=== PATIENT | female | born 1965 | race Caucasian/White ===

== ENCOUNTER 2016-07-23 18:46 | Emergency (ER) | payer BC ==
--- NOTE | 2016-07-23 19:23 | EDM.PDOC ---
[id number] 4d appendix Time Seen by Provider: 07/23/16 19:15 Source: Reports: Patient, Family, Provider History Limitations: Reports: No limitations - History of Present Illness INITIAL COMMENTS - FREE TEXT/NARRATIVE: 51-year-old female has had right lower quadrant abdominal pain with rebound and fever for the past 24 hours. It came on gradually. She was evaluated at the clinic and sent over to the emergency room for CT scan. No nausea or vomiting. Location: [facility] Quality: Reports: stabbing Severity: moderate Worsens with: Reports: other (Movement or palpation) Context: Denies: bad/questionable food Associated Symptoms (-Female): Reports: fever/chills - Related Data Allergies/ADRs: Allergies Allergy/AdvReac Type Severity Reaction Status Date / Time hydromorphone [From Dilaudid] Allergy Hives Verified 07/23/16 19:01 Penicillins Allergy Seizure Verified 07/23/16 19:01 Home Meds: Home Meds Escitalopram [Lexapro] 5 mg PO DAILY 07/23/16 [History] Past Medical History HEENT History: Reports: Impaired vision Cardiovascular History: Reports: Heart murmur, Other (see below) Other Cardiovascular History: ventricular septal defect Respiratory History: Reports: None Gastrointestinal History: Reports: Chronic constipation, Diverticulosis, GERD Other Gastrointestinal History: polyps Genitourinary History: Reports: Other (see below) Other Genitourinary History: 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 AND PATIENT HAS 2 UTERUS [employer]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 (see below) Other OB/BYN History: 2 uteruses TUBAL LIGATION AT AGE 35 Musculoskeletal History: Reports: None Neurological History: Reports: None Psychiatric History: Reports: None, Depression Endocrine/Metabolic History: Reports: None Hematologic History: Reports: Blood transfusion(s) Immunologic History: Reports: None Oncologic (Cancer) History: Reports: None Dermatologic History: Reports: None - Infectious Disease History Infectious Disease History: Reports: None - Past Surgical History Head Surgeries/Procedures: Reports: None Cardiovascular Surgical History: Reports: Other (see below) Other Cardiovascular Surgeries/Procedures: VENTRICULAR SEPTAL DEFECT REPAIRED LOWER CHAMBER OF HEART AT AGE 4.5 GI Surgical History: Reports: Cholecystectomy, Colonoscopy, Treasure fundoplication, Other (see below) Other GI Surgeries/Procedures: PILINODIL CYST REMOVED AT AGE 18. hiatal hernia repair/ Female Surgical History: Reports: section Musculoskeletal Surgical History: Reports: None Social & Family History - Family History HEENT: Reports: Hearing impairment, Impaired vision Cardiac: Reports: CAD, Hypertension, VA, Pacemaker Respiratory: Reports: COPD GI: Reports: Diverticulosis Other GI Family History: HERNIA SURGERIES : Reports: None OBGYN: Reports: None Musculoskeletal: Reports: Arthritis Neurological: Reports: None Psychiatric: Reports: Anxiety Endocrine/Metabolic: Reports: None Hematologic: Reports: None Immunologic: Reports: None Dermatologic: Reports: None Oncologic: Reports: None - Tobacco Use Smoking Status *Q: Never Smoker Second Hand Smoke Exposure: Yes - Caffeine Use Caffeine Use: Reports: Coffee - Alcohol Use Days Per Week of Alcohol Use: 1 Number of Drinks Per Day: 1 Total Drinks Per Week: 1 - Recreational Drug Use Recreational Drug Use: No ED ROS GENERAL - Review of Systems Review Of Systems: See Below Constitutional: Reports: fever, chills HEENT: Reports: No symptoms Respiratory: Denies: Shortness of Breath Cardiovascular: Denies: Chest pain GI/Abdominal: Reports: Abdominal pain. Denies: Nausea, Vomiting : Reports: no symptoms Skin: Reports: no symptoms Neurological: Reports: No Symptoms. Denies: Headache Psychiatric: Reports: No symptoms ED EXAM, GI/ABD - Physical Exam Exam: See Below Exam Limited By: No limitations General Appearance: alert, mild distress (Looks fairly uncomfortable) Eyes: bilateral: normal appearance (No jaundice) Respiratory/Chest: no respiratory distress GI/Abdominal: soft, tenderness, guarding, rebound (Right lower quadrant) Neurological: alert, oriented Psychiatric: anxious Skin Exam: Warm, Dry Course - Vital Signs Last Recorded V/S: Last Vital Signs Temp 100.7 F H 07/23/16 19:04 Pulse 71 07/23/16 19:51 Resp 16 07/23/16 19:04 BP 125/73 07/23/16 19:51 Pulse Ox 97 07/23/16 19:51 - Orders/Labs/Meds Orders: Active Orders 24 hr Category Date Time Status Abdomen Pelvis w Cont [CT] Stat Exams 07/23/16 19:49 Taken Labs: Laboratory Tests 07/23/16 07/23/16 Range/Units 19:20 19:20 WBC 6.2 (4.5-11.0) K/uL RBC 4.81 (3.30-5.50) M/uL Hgb 14.3 (12.0-15.0) g/dL Hct 42.3 (36.0-48.0) % MCV 88 (80-98) fL MCH 30 (27-31) pg MCHC 34 (32-36) % Plt Count 226 (150-400) K/uL Neut % (Auto) 70 H (36-66) % Lymph % (Auto) 14 L (24-44) % Citrus % (Auto) 14 H (2-6) % Eos % (Auto) 2 (2-4) % Baso % (Auto) 0 (0-1) % Sodium 137 L (140-148) mmol/L Potassium 3.6 (3.6-5.2) mmol/L Chloride 102 (100-108) mmol/L Carbon Dioxide 26 (21-32) mmol/L Anion Gap 12.6 (5.0-14.0) mmol/L BUN 10 D (7-18) mg/dL Creatinine 0.7 (0.6-1.0) mg/dL Est Cr Clr Drug Dosing 83.03 mL/min Estimated GFR (MDRD) > 60 (>60) Glucose 92 (74-106) mg/dL Calcium 8.1 L (8.5-10.1) mg/dL Total Bilirubin 0.6 (0.2-1.0) mg/dL AST 42 H D (15-37) U/L ALT 59 (12-78) U/L Alkaline Phosphatase 85 (46-116) U/L Total Protein 7.6 (6.4-8.2) g/dL Albumin 3.7 (3.4-5.0) g/dL Globulin 3.9 H (2.3-3.5) g/dL Albumin/Globulin Ratio 1.0 L (1.2-2.2) Meds: Medications Discontinued Medications Generic Name Dose Route Start Last Admin Trade Name Freq PRN Reason Stop Dose Admin Sodium Chloride 80 mls @ 3 mls/sec 07/23/16 20:00 07/23/16 20:16 Normal Saline IV 3 mls/sec ASDIRECTED MELANIE Administration Iopamidol 135 ml 07/23/16 20:00 07/23/16 20:16 Isovue-300 (61%) IV 135 ml . DIRECTED MELANIE Administration Ketorolac Tromethamine 30 mg 07/23/16 21:05 07/23/16 21:11 Toradol IVPUSH 07/23/16 21:06 30 mg ONETIME ONE Administration Sodium Chloride 10 ml 07/23/16 19:58 07/23/16 20:16 Saline Flush FLUSH 10 ml ASDIRECTED PRN Administration Keep Vein Open - Re-Assessments/Exams Free Text/Narrative Re-Assessment/Exam: 07/23/16 19:22 CBC and CMP were obtained with the intention of getting a CT scan with IV contrast. 07/23/16 21:05 White count is normal, labs were reassuring and CT scan shows no definite evidence of appendicitis or other inflammatory change. The patient was given 30 mg of Toradol IV, and rest tonight and advance diet as tolerated and recheck in the next 24-48 hours if not improving. Departure - Departure Time of Disposition: 21:27 Disposition: Home, Self-Care 01 Condition: good Clinical Impression: Abdominal pain Qualifiers: Abdominal location: right lower quadrant Qualified Code(s): R10.31 - Right lower quadrant pain Instructions: Abdominal Pain, Adult, [id number] Referrals: Donna Mayorga MD [Primary Care Provider] - Forms: ED Department Discharge Care Plan Goals: Rest tonight, consider magnesium citrate or MiraLax to clear the bowel and increase diet and activity as tolerated. Return anytime if you feel you are worsening or have other concerns. - My Orders Last 24 Hours: My Active Orders 07/23/16 19:49 Abdomen Pelvis w Cont [CT] Stat - Assessment/Plan Last 24 Hours: My Active Orders 07/23/16 19:49 Abdomen Pelvis w Cont [CT] Stat
[2016-07-23] MEDS ORDERED: Sodium Chloride 0.9% 10 ML Syringe FLUSH PRN (19:58)
[2016-07-23] MEDS ORDERED: Sodium Chloride 0.9% 80 ML IV SCH (20:00)
[2016-07-23] MEDS ORDERED: Iopamidol 612 MG/ML 150 ML Bottle IV SCH (20:00)
[2016-07-23 20:02] VITALS: BP 125/73
[2016-07-23] MEDS ORDERED: Ketorolac 30 MG/ML SDV IVPUSH ONE (21:05)
== END 2016-07-23 21:27 | disposition home or self-care (01) ==
LOC: JP.ED 18:46
DX: R10.31 Right lower quadrant pain (principal); F32.9 Major depressive disorder, single episode, unspecified; Z98.51 Tubal ligation status; Z90.49 Acquired absence of other specified parts of digestive tract; Z98.890 Other specified postprocedural states; Z79.899 Other long term (current) drug therapy; Z88.0 Allergy status to penicillin; Z88.8 Allergy status to other drugs, medicaments and biological substances
CPT/HCPCS: 36415; 74177; 80053; 85025; 96374; 99284; J1885; J7030; J7050

== ENCOUNTER 2024-03-13 09:38 | Observation (INO) | payer OTHER ==
[2024-03-13 10:00] LABS: BASE EXCESS VENOUS 1.4 mm/L; BICARBONATE,VENOUS 25.3 mmol/L; CARBOXYHEMOGLOBIN 2.4 % (0.0-1.6); O2 SATURATION VENOUS 65.5; OXYHEMOGLOBIN 63.3 %; PCO2 VENOUS 39.5 mm/Hg; PH,VENOUS 7.423 (7.350-7.450); TOTAL HEMOGLOBIN 16.2 g/dL (12.0-16.0)
[2024-03-13 10:01] LABS: BASOPHILS PERCENT AUTO 0.2 % (0.1-1.3); HEMATOCRIT 46.6 % (34.3-46.0); HEMOGLOBIN 15.6 g/dL (11.2-15.5); IMMATURE GRAN ABSOLUTE AUTO 0.03 K/uL (0.00-0.23); IMMATURE GRAN PERCENT AUTO 0.3 % (0.0-0.7); LYMPHOCYTES ABSOLUTE AUTO 0.88 K/uL (0.8-3.3); LYMPHOCYTES PERCENT AUTO 8.5 % (11.4-47.7); MEAN CORPUSCULAR HEMOGLOBIN 30.4 pg (31.6-35.5); MEAN CORPUSCULAR HGB CONC 33.5 g/dL (31.6-35.5); MEAN CORPUSCULAR VOLUME 90.7 fL (81.4-99.0); MONOCYTES ABSOLUTE AUTO 0.49 K/uL (0.20-0.90); MONOCYTES PERCENT AUTO 4.7 % (3.3-12.6); NEUTROPHILS ABSOLUTE AUTO 8.98 K/uL (1.0-7.6); NEUTROPHILS PERCENT AUTO 86.3 % (40.0-78.1); PLATELET COUNT,PLT 284 K/uL (130-375); RED BLOOD CELL COUNT 5.14 M/uL (3.77-5.24); WHITE BLOOD CELL COUNT,WBC 10.4 K/uL (3.2-11.0)
[2024-03-13 10:02] LABS: BASOPHILS ABSOLUTE AUTO 0.02 K/uL (0.00-0.10)
[2024-03-13] MEDS: Ondansetron 4 MG/2 ML SDV IVPUSH ONE (10:02)
[2024-03-13] MEDS: Sodium Chloride 0.9% 1,000 ML IV SCH (10:05)
[2024-03-13 10:16] LABS: ALANINE AMINOTRANSFERASE,ALT 47 U/L (12-78); ALBUMIN 4.3 g/dL (3.4-5.0); ALKALINE PHOSPHATASE 120 U/L (46-116); ASPARTATE AMNIOTRANSFERASE,AST 29 U/L (15-37); BILIRUBIN TOTAL 0.7 mg/dL (0.2-1.0); BLOOD UREA NITROGEN,BUN 14 mg/dL (7-18); CALCIUM 9.9 mg/dL (8.5-10.1); CARBON DIOXIDE,CO2 28 mmol/L (21-32); CHLORIDE,CL 100 mmol/L (100-108); CREATININE 0.9 mg/dL (0.6-1.0); EST CRCL DRUG DOSING (CG) 58.84 mL/min; ESTIMATED GFR 74 mL/min (>60); GLUCOSE RANDOM 169 mg/dL (74-106); MAGNESIUM 1.7 mg/dL (1.8-2.4); POTASSIUM,K 3.9 mmol/L (3.6-5.2); PROTEIN TOTAL,TP 8.4 g/dL (6.4-8.2); SODIUM,NA 139 mmol/L (140-148)
[2024-03-13 10:17] LABS: A/G RATIO 1.1 (1.2-2.2); ANION GAP 14.9 mmol/L (5.0-14.0)
[2024-03-13] MEDS: diphenhydrAMINE 50 MG/ML SDV IVPUSH ONE (10:31)
[2024-03-13] MEDS ORDERED: Naloxone 0.4 MG/ML SDV IVPUSH PRN ×2 (10:35→14:36)
[2024-03-13] MEDS: fentaNYL 50 MCG/ML SDV IVPUSH ONE ×2 (10:50→14:44)
[2024-03-13] MEDS: Prochlorperazine 10 MG/2 ML SDV IVPUSH ONE (12:17)
[2024-03-13] MEDS: Sodium Chloride 0.9% 1,000 ML IV ONE (13:00)
[2024-03-13 14:03] LABS: AMPHETAMINES SCREEN, URINE NEGATIVE (NEGATIVE); BARBITURATE SCREEN,URINE NEGATIVE (NEGATIVE); BENZODIAZEPINES SCREEN,URINE NEGATIVE (NEGATIVE); METHADONE SCREEN, URINE NEGATIVE (NEGATIVE); METHAMPHETAMINES SCREEN, URINE NEGATIVE (NEGATIVE); OXYCODONE SCREEN,URINE NEGATIVE (NEGATIVE); PROPOXYPHENE SCREEN,URINE NEGATIVE (NEGATIVE); THC SCREEN,URINE 50 NG/ML NEGATIVE (NEGATIVE)
[2024-03-13 14:03] LABS: APPEARANCE,URINE CLEAR (CLEAR); BILIRUBIN,URINE NEGATIVE (NEGATIVE); COLOR,URINE YELLOW (YELLOW); GLUCOSE,URINE NEGATIVE (NEGATIVE); KETONES,URINE 15 mg/dL (NEGATIVE); LEUKOCYTE ESTERASE,URINE NEGATIVE (NEGATIVE); NITRITE,URINE NEGATIVE (NEGATIVE); OCCULT BLOOD,URINE TRACE-INTACT (NEGATIVE); PH,URINE 6.5 (5.0-8.0); PROTEIN,URINE TRACE mg/dL (NEGATIVE); UROBILINOGEN,URINE 0.2 EU/dL (0.2-1.0)
[2024-03-13 14:07] LABS: AMORPHOUS SEDIMENT,URINE FEW; BACTERIA,URINE RARE; EPITHELIAL CELLS,URINE RARE; MUCUS,URINE MODERATE; RBC,URINE 0-5 (0-5); WBC,URINE 0-5 (0-5)
[2024-03-13] MEDS ORDERED: Ondansetron 4 MG/2 ML SDV ONE (15:28)
[2024-03-13] MEDS ORDERED: fentaNYL 250 MCG/5 ML SDV ONE (15:28)
[2024-03-13] MEDS ORDERED: Propofol 200 MG/20 ML SDV ONE (15:28)
[2024-03-13] MEDS ORDERED: Dexamethasone 4 MG/ML SDV ONE (15:28)
[2024-03-13] MEDS ORDERED: Succinylcholine 200 MG/10 ML MDV ONE (15:28)
[2024-03-13] MEDS ORDERED: Glycopyrrolate 0.2 MG/ML 5 ML MDV ONE (15:28)
[2024-03-13] MEDS ORDERED: Rocuronium 50 MG/5 ML Vial ONE (15:28)
[2024-03-13] MEDS ORDERED: Neostigmine Methylsulfate 10 MG/10 ML MDV ONE (15:28)
[2024-03-13] MEDS: ceFAZolin 2 GM in Premix Bag 1 BAG IV ONE (15:40)
[2024-03-13] MEDS ORDERED: fentaNYL 100 MCG/2 ML SDV ONE (16:17)
[2024-03-13] MEDS: Bupivacaine 0.25%/EPINEPHrine 1:200,000 30 ML SDV ONE (16:32)
[2024-03-13] MEDS ORDERED: fentaNYL 50 MCG/ML SDV IVPUSH PRN (17:37)
[2024-03-13] MEDS ORDERED: Ondansetron 4 MG/2 ML SDV IV PRN (17:38)
[2024-03-13] MEDS: oxyCODONE 5 MG Tab PO PRN (18:42)
[2024-03-13] MEDS: Acetaminophen 500 MG Tab PO SCH (19:52)
[2024-03-13] MEDS: Ciprofloxacin in D5W 400 MG in Premix Bag 1 BAG IV SCH (20:15)
[2024-03-13] MEDS: Pantoprazole 40 MG Delayed-Release Granules 1 Packet PO SCH (20:19)
[2024-03-13] MEDS: Docusate Sodium 100 MG Cap PO SCH (20:19)
[2024-03-13] MEDS: cefTRIAXone 2 GM in Sodium Chloride 0.9% 50 ML IV SCH (21:45)
[2024-03-14 05:40] LABS: BASOPHILS PERCENT AUTO 0.1 % (0.1-1.3); HEMATOCRIT 36.8 % (34.3-46.0); HEMOGLOBIN 12.3 g/dL (11.2-15.5); IMMATURE GRAN ABSOLUTE AUTO 0.05 K/uL (0.00-0.23); IMMATURE GRAN PERCENT AUTO 0.4 % (0.0-0.7); LYMPHOCYTES ABSOLUTE AUTO 1.47 K/uL (0.8-3.3); LYMPHOCYTES PERCENT AUTO 11.3 % (11.4-47.7); MEAN CORPUSCULAR HEMOGLOBIN 30.5 pg (31.6-35.5); MEAN CORPUSCULAR HGB CONC 33.4 g/dL (31.6-35.5); MEAN CORPUSCULAR VOLUME 91.3 fL (81.4-99.0); MONOCYTES ABSOLUTE AUTO 1.17 K/uL (0.20-0.90); NEUTROPHILS ABSOLUTE AUTO 10.33 K/uL (1.0-7.6); NEUTROPHILS PERCENT AUTO 79.2 % (40.0-78.1); PLATELET COUNT,PLT 232 K/uL (130-375); RED BLOOD CELL COUNT 4.03 M/uL (3.77-5.24)
[2024-03-14 05:46] LABS: BASOPHILS ABSOLUTE AUTO 0.01 K/uL (0.00-0.10)
[2024-03-14 05:48] VITALS: BP 102/48; PULSE 66
[2024-03-14] MEDS: Heparin Sodium 5,000 Units/ML Vial SUBCUT SCH (05:49)
[2024-03-14 06:07] LABS: ANION GAP 8.6 mmol/L (5.0-14.0); CALCIUM 9.4 mg/dL (8.5-10.1); CREATININE 0.8 mg/dL (0.6-1.0); EST CRCL DRUG DOSING (CG) 66.19 mL/min; POTASSIUM,K 3.8 mmol/L (3.6-5.2)
[2024-03-14] MEDS: Escitalopram 10 MG Tab PO SCH (08:10)
== END 2024-03-14 11:39 | disposition home or self-care (01) ==
LOC: JP.ED 09:38 → JP.SURCL 15:32 → JP.2SS 17:30
PROVIDERS: ADMIT Surgery; ATTEND Surgery
DX: K35.30 Acute appendicitis with localized peritonitis, without perforation or gangrene (principal); F32.A Depression, unspecified; K21.9 Gastro-esophageal reflux disease without esophagitis; Z79.899 Other long term (current) drug therapy; Z88.0 Allergy status to penicillin; Z88.5 Allergy status to narcotic agent
CPT/HCPCS: 36415; 44970; 74176; 80048; 80053; 80305; 80307; 81001; 82803; 83605; 83690; 83735; 84145; 85025; 88302; 96361; 96365; 96375; 96376; 99285; A9270; J0330; J0690; J0696; J0744; J0780; J1100; J1200; J1596; J1644; J2405; J2704; J2710; J3010; J3490; J7030; 00840-QZ

== ENCOUNTER 2024-04-07 17:27 | Emergency (ER) | payer OTHER ==
[2024-04-07] MEDS ORDERED: SODIUM CHLORIDE ONE (18:03)
[2024-04-07] MEDS ORDERED: CLINDAMYCIN ONE (18:03)
[2024-04-07] MEDS: Clindamycin in 0.9 % Sod Chlor 900 MG in Premix Bag 1 BAG IV ONE (18:31)
[2024-04-07 18:33] VITALS: BP 114/38; PULSE 43
== END 2024-04-07 19:05 | disposition home or self-care (01) ==
LOC: JP.ED 17:27
DX: L03.311 Cellulitis of abdominal wall (principal); E66.9 Obesity, unspecified; Z68.38 Body mass index [BMI] 38.0-38.9, adult; Z90.49 Acquired absence of other specified parts of digestive tract; Z88.5 Allergy status to narcotic agent; Z88.0 Allergy status to penicillin
CPT/HCPCS: 96365; 99283; J0736

== ENCOUNTER 2024-09-05 11:52 | Emergency (ER) | payer OTHER ==
[2024-09-05 12:25] LABS: BASOPHILS ABSOLUTE AUTO 0.03 K/uL (0.00-0.10); BASOPHILS PERCENT AUTO 0.4 % (0.1-1.3); EOSINOPHILS ABSOLUTE AUTO 0.05 K/uL (0.00-0.40); EOSINOPHILS PERCENT AUTO 0.6 % (0.0-5.4); HEMATOCRIT 42.4 % (34.3-46.0); IMMATURE GRAN PERCENT AUTO 0.3 % (0.0-0.7); LYMPHOCYTES ABSOLUTE AUTO 1.83 K/uL (0.8-3.3); MEAN CORPUSCULAR HEMOGLOBIN 30.3 pg (31.6-35.5); MEAN CORPUSCULAR VOLUME 91.8 fL (81.4-99.0); MONOCYTES PERCENT AUTO 8.8 % (3.3-12.6); NEUTROPHILS ABSOLUTE AUTO 5.32 K/uL (1.0-7.6); NEUTROPHILS PERCENT AUTO 66.9 % (40.0-78.1); PLATELET COUNT,PLT 299 K/uL (130-375); RED BLOOD CELL COUNT 4.62 M/uL (3.77-5.24)
[2024-09-05 12:26] LABS: ANION GAP 7.9 mmol/L (5.0-14.0); CALCIUM 9.5 mg/dL (8.5-10.1); CREATININE 0.7 mg/dL (0.6-1.0); EST CRCL DRUG DOSING (CG) 75.65 mL/min; POTASSIUM,K 3.7 mmol/L (3.6-5.2); TROPONIN I HIGH SENSITIVITY 12.9 pg/mL (<=60.3)
[2024-09-05 12:34] VITALS: BP 154/72; PULSE 75
[2024-09-05 12:38] LABS: IMMATURE GRAN ABSOLUTE AUTO 0.02 K/uL (0.00-0.23)
[2024-09-05] MEDS: Iopamidol 755 Mg/ML 100 ML Bottle IV ONE (15:29)
[2024-09-05] MEDS: Sodium Chloride 0.9% 100 ML IV ONE (15:29)
[2024-09-05] MEDS: Sodium Chloride 0.9% 10 ML Syringe FLUSH ONE (15:29)
== END 2024-09-05 15:27 | disposition home or self-care (01) ==
LOC: JP.ED 11:52
DX: R07.89 Other chest pain (principal); E66.9 Obesity, unspecified; Z68.37 Body mass index [BMI] 37.0-37.9, adult; Z88.0 Allergy status to penicillin; Z88.8 Allergy status to other drugs, medicaments and biological substances; Z79.899 Other long term (current) drug therapy; Z90.49 Acquired absence of other specified parts of digestive tract
CPT/HCPCS: 36415; 71275; 80048; 84484; 85025; 85379; 93005; 99285; Q9967

== ENCOUNTER 2024-09-21 10:01 | Emergency (ER) | payer OTHER ==
[2024-09-21 10:23] VITALS: BP 154/85; PULSE 90
[2024-09-21 10:32] LABS: BASOPHILS ABSOLUTE AUTO 0.05 K/uL (0.00-0.10); BASOPHILS PERCENT AUTO 0.6 % (0.1-1.3); EOSINOPHILS ABSOLUTE AUTO 0.06 K/uL (0.00-0.40); EOSINOPHILS PERCENT AUTO 0.7 % (0.0-5.4); HEMATOCRIT 40.4 % (34.3-46.0); HEMOGLOBIN 13.5 g/dL (11.2-15.5); IMMATURE GRAN PERCENT AUTO 0.2 % (0.0-0.7); LYMPHOCYTES ABSOLUTE AUTO 2.71 K/uL (0.8-3.3); LYMPHOCYTES PERCENT AUTO 32.2 % (11.4-47.7); MEAN CORPUSCULAR HEMOGLOBIN 30.5 pg (31.6-35.5); MEAN CORPUSCULAR HGB CONC 33.4 g/dL (31.6-35.5); MEAN CORPUSCULAR VOLUME 91.4 fL (81.4-99.0); MONOCYTES ABSOLUTE AUTO 0.63 K/uL (0.20-0.90); MONOCYTES PERCENT AUTO 7.5 % (3.3-12.6); NEUTROPHILS ABSOLUTE AUTO 4.94 K/uL (1.0-7.6); NEUTROPHILS PERCENT AUTO 58.8 % (40.0-78.1); PLATELET COUNT,PLT 291 K/uL (130-375); RED BLOOD CELL COUNT 4.42 M/uL (3.77-5.24); WHITE BLOOD CELL COUNT,WBC 8.4 K/uL (3.2-11.0)
[2024-09-21 10:35] LABS: IMMATURE GRAN ABSOLUTE AUTO 0.02 K/uL (0.00-0.23)
[2024-09-21] MEDS: LORazepam 0.5 MG Tab PO ONE (10:35)
[2024-09-21 11:03] LABS: ALANINE AMINOTRANSFERASE,ALT 74 U/L (12-78); ALBUMIN 3.6 g/dL (3.4-5.0); ALKALINE PHOSPHATASE 116 U/L (46-116); ASPARTATE AMNIOTRANSFERASE,AST 40 U/L (15-37); BILIRUBIN TOTAL 0.4 mg/dL (0.2-1.0); BLOOD UREA NITROGEN,BUN 16 mg/dL (7-18); CALCIUM 9.3 mg/dL (8.5-10.1); CARBON DIOXIDE,CO2 26 mmol/L (21-32); CHLORIDE,CL 103 mmol/L (100-108); CREATININE 0.8 mg/dL (0.6-1.0); EST CRCL DRUG DOSING (CG) 66.19 mL/min; ESTIMATED GFR 85 mL/min (>60); GLUCOSE RANDOM 115 mg/dL (74-106); POTASSIUM,K 3.5 mmol/L (3.6-5.2); PROTEIN TOTAL,TP 7.3 g/dL (6.4-8.2); SODIUM,NA 138 mmol/L (140-148)
[2024-09-21 11:09] LABS: ANION GAP 12.5 mmol/L (5.0-14.0)
== END 2024-09-21 14:30 | disposition home or self-care (01) ==
LOC: JP.ED 10:01
DX: R07.89 Other chest pain (principal); F41.9 Anxiety disorder, unspecified; Z90.49 Acquired absence of other specified parts of digestive tract; Z88.0 Allergy status to penicillin; Z88.5 Allergy status to narcotic agent; Z79.899 Other long term (current) drug therapy
CPT/HCPCS: 36415; 80053; 84484; 85025; 93005; 93010; 99284; 99285; A9270

== ENCOUNTER 2024-11-19 07:53 | Day surgery (SDC) | payer OTHER ==
[2024-11-19] MEDS: Lactated Ringers 1,000 ML IV SCH (08:46)
[2024-11-19] MEDS ORDERED: fentaNYL 50 MCG/ML SDV ONE (10:14)
[2024-11-19] MEDS ORDERED: Propofol 200 MG/20 ML SDV ONE ×2 (10:14→11:02)
[2024-11-19] MEDS ORDERED: Midazolam 1 MG/ML 2 ML SDV ONE (10:14)
[2024-11-19 12:05] VITALS: PULSE 61
[2024-11-19 12:36] VITALS: BP 128/60
== END 2024-11-19 12:55 | disposition home or self-care (01) ==
LOC: JP.SDS 07:53
PROVIDERS: ATTEND Surgery
DX: D12.2 Benign neoplasm of ascending colon (principal); D12.8 Benign neoplasm of rectum; K29.50 Unspecified chronic gastritis without bleeding; K44.9 Diaphragmatic hernia without obstruction or gangrene; Z88.0 Allergy status to penicillin; Z88.6 Allergy status to analgesic agent
CPT/HCPCS: 00813; 43239; 45380; 87081; J2250; J2704; J3010; J7120; 88305; 88312; 88342